=== PATIENT | female | born 1970 | race Caucasian/White ===

== ENCOUNTER 2018-01-24 20:55 | Emergency (ER) | payer MEDICAID ==
[2018-01-24] MEDS ORDERED: LIDOCAINE 2%/EPI (MDV) 20ML INJ INJ (23:30)
[2018-01-24] MEDS: LIDOCAINE 2%/EPI MPF (SDV) 20 ML VIAL INJ (23:45)
[2018-01-25] MEDS: ACETAMINOPHEN 325 MG TAB PO (02:22)
== END 2018-01-25 02:46 | disposition home or self-care (01) ==
LOC: E/R 01-25 02:46
DX: S01.01XA Laceration without foreign body of scalp, initial encounter (principal); S09.90XA Unspecified injury of head, initial encounter; E03.9 Hypothyroidism, unspecified; R40.2142 Coma scale, eyes open, spontaneous, at arrival to emergency department; R40.2252 Coma scale, best verbal response, oriented, at arrival to emergency department; R40.2362 Coma scale, best motor response, obeys commands, at arrival to emergency department; Y04.8XXA Assault by other bodily force, initial encounter
CPT/HCPCS: 12002; 70450; 72125; 99285-25